=== PATIENT | male | born 1990 | race Caucasian/White ===

== ENCOUNTER 2021-08-24 10:36 | Emergency (ER) | payer OTHER, SELFPAY ==
[2021-08-24 10:54] VITALS: BP 126/57; PULSE 82; RESP 16; TEMP 36.6; O2SAT 100
--- NOTE | 2021-08-24 12:36 | ED.DENTAL ---
HPI - Dental/Oral General Chief complaint: Dental/Oral Stated complaint: UPPER TOOTH PAIN, GUM SWELLING Time Seen by Provider: 08/24/21 12:04 History of Present Illness HPI Narrative: 31-year-old male presenting to the emergency department for evaluation of 1 month of dental pain. Patient states the pain has been ongoing for 1 month. Patient states he began having facial swelling few days ago. Patient was seen by his physician and was prescribed antibiotics and meloxicam. Patient states he did take his first dose of antibiotic last night but vomited. Patient did not attempt to retake the medication again and gave no reasoning for not attempting the medication. Patient and family state that the facial swelling was worsened last night but has since improved today. Patient denies any difficulty breathing or swallowing. Patient does have follow-up scheduled on Friday with a dentist. Related Data Home Medications Medication Instructions Recorded Confirmed acetaminophen [Tylenol] 650 mg PO ONCE 08/24/21 08/24/21 amoxicillin-pot clavulanate 1 tablet PO Q12H 08/24/21 08/24/21 ibuprofen 200 mg PO Q6H PRN 08/24/21 08/24/21 meloxicam 15 mg PO DAILY 08/24/21 08/24/21 Allergies Allergy/AdvReac Type Severity Reaction Status Date / Time No Known Allergies Allergy Unverified 08/24/21 12:21 Review of Systems Review of Systems: CONSTITUTIONAL: Denies fever, chills, or sweats. EYES: Denies visual changes, redness, or discharge. ENT: Denies rhinorrhea, congestion, sore throat, or otalgia. Left upper dental pain, left facial swelling CARDIOVASCULAR: Denies chest pain, palpitations, or edema. RESPIRATORY: Denies cough or dyspnea. GASTROINTESTINAL: Does report associated nausea vomiting GENITOURINARY: Denies dysuria or hematuria. SKIN: Denies rash or itching. MUSCULOSKELETAL: Denies back pain, joint pain, or myalgia. NEUROLOGIC: Denies headache, numbness, or weakness. Exam Narrative: APPEARANCE: Well appearing, no pain in distress, well-nourished. Head normocephalic atraumatic. Left facial swelling EYES: PERRLA/EOMI, conjunctivae very clear. NOSE: Normal no drainage EARS:TMS clear Dony Haney, with good light reflex. THROAT: Pharynx clear, no exudate. Normal posterior pharynx. No abscess around the affected tooth. Multiple dental caries and fractured teeth. NECK: Supple. No adenopathy, no masses. SKIN:: Warm, dry. Normal Color Course Course Emergency Course: Patient was updated on the plan for treatment including antibiotics in the emergency department and Zofran. Patient was encouraged to continue to have close follow-up with his dentist as scheduled. All questions and concerns were addressed. Patient and family were comfortable with the plan for discharge and follow-up. Reevaluation(s) Reevaluation #1: Patient is tolerating p.o. and is requesting discharge to home Time: 13:02 Vital Signs Vital signs: Vital Signs Temperature 97.9 F 08/24/21 10:54 Pulse Rate 82 08/24/21 10:54 Respiratory Rate 16 08/24/21 10:54 Blood Pressure 126/57 L 08/24/21 10:54 Pulse Oximetry 100 08/24/21 10:54 Temperature 97.9 F 08/24/21 10:54 Pulse Rate 82 08/24/21 10:54 Respiratory Rate 16 08/24/21 10:54 Blood Pressure 126/57 L 08/24/21 10:54 Pulse Oximetry 100 08/24/21 10:54 MDM - Dental/Oral MDM Narrative Medical decision making narrative: Patient did not take his morning dose of medication. In the emergency department patient was given his morning dose of Augmentin along with Zofran to help with p.o. challenge. Patient does have follow-up with his dentist. Patient does have a previous prescription for Augmentin. Patient was educated on the importance of follow-up and on the reasons to return to the emergency department. Discharge Plan Discharge Clinical Impression: Dental caries Patient Disposition: Home, Self-Care Condition: Stable Instructions: Antibiotic Form Additional Instructions: Ant
[2021-08-24] MEDS: AMOXICILLIN/CLAVULANATE K 875-125 MG TAB 1 TABLET PO (12:44)
[2021-08-24] MEDS: ONDANSETRON HCL ODT 4 MG TABLET PO (12:44)
== END 2021-08-24 13:11 | disposition home or self-care (01) ==
PROVIDERS: Emergency Provider Emergency Medicine
DX: K02.9 Dental caries, unspecified (principal)
CPT/HCPCS: 99283; A9270